=== PATIENT | female | born 1975 | race Hispanic/Latino ===

== ENCOUNTER → 2023-12-09 | Day surgery (SDC) | payer OTHER ==
[~2023-12-09] MED LIST: LIDOCAINE HCL 2% LOCAL INJ 5 ML SDV VIAL INJ ONE; PROPOFOL IV EMULSION 10 MG/ML 20 ML VIAL ONE
[2023-12-09] MEDS: LACTATED RINGER'S 1,000 ML ONE (12:02)
[2023-12-09 14:01] VITALS: TEMP 97.1
[2023-12-09 14:30] VITALS: BP 129/76; PULSE 68; RESP 16; O2SAT 98
== END | disposition home or self-care (01) ==
LOC: OR 11:08
PROVIDERS: ATTEND Internal Medicine Gastroenterology
DX: Z12.11 Encounter for screening for malignant neoplasm of colon (principal); D12.2 Benign neoplasm of ascending colon; D12.3 Benign neoplasm of transverse colon; D12.4 Benign neoplasm of descending colon; K64.8 Other hemorrhoids; R03.0 Elevated blood-pressure reading, without diagnosis of hypertension; F17.290 Nicotine dependence, other tobacco product, uncomplicated; Z88.0 Allergy status to penicillin; Z68.31 Body mass index [BMI] 31.0-31.9, adult
CPT/HCPCS: 45384; 45385; 81025; J2001; J2704; J7121; 45378